=== PATIENT | male | born 1955 | race Caucasian/White ===

== ENCOUNTER 2023-01-14 08:37 | Outpatient (CLI) | payer MEDICARE, BC, SELFPAY | END 2023-01-14 08:38 | disposition home or self-care (01) | PROVIDERS: PCP Family Medicine; Visit Provider Nurse Practitioner Family | DX: Z00.00 Encounter for general adult medical examination without abnormal findings (principal); I10 Essential (primary) hypertension; E11.9 Type 2 diabetes mellitus without complications; E78.5 Hyperlipidemia, unspecified; Z12.5 Encounter for screening for malignant neoplasm of prostate | CPT/HCPCS: 80053; 80061; 84153 ==

== ENCOUNTER 2023-06-25 10:17 | Outpatient (CLI) | payer MEDICARE, BC, SELFPAY | END 2023-06-25 10:18 | disposition home or self-care (01) | LOC: NFLDREF 06-30 11:29 | PROVIDERS: PCP Family Medicine; Referring Provider Family Medicine; Visit Provider Family Medicine | DX: E11.9 Type 2 diabetes mellitus without complications (principal); E13.9 Other specified diabetes mellitus without complications; G47.00 Insomnia, unspecified; F41.9 Anxiety disorder, unspecified | CPT/HCPCS: 83036 ==

== ENCOUNTER 2024-01-18 09:00 | Outpatient (CLI) | payer MEDICARE, BC, SELFPAY | END 2024-01-18 09:01 | disposition home or self-care (01) | PROVIDERS: PCP Family Medicine; Visit Provider Family Medicine | DX: E11.9 Type 2 diabetes mellitus without complications (principal); E78.2 Mixed hyperlipidemia; Z12.5 Encounter for screening for malignant neoplasm of prostate | CPT/HCPCS: 80048; 80061; G0103 ==

== ENCOUNTER 2024-08-23 08:43 | Outpatient (CLI) | payer MEDICARE, BC, SELFPAY | END 2024-08-23 08:44 | disposition home or self-care (01) | PROVIDERS: PCP Family Medicine; Visit Provider Family Medicine | DX: E13.9 Other specified diabetes mellitus without complications (principal); I10 Essential (primary) hypertension; E78.5 Hyperlipidemia, unspecified; Z13.29 Encounter for screening for other suspected endocrine disorder; Z13.21 Encounter for screening for nutritional disorder | CPT/HCPCS: 82607; 84443 ==

== ENCOUNTER 2025-02-06 08:54 | Outpatient (CLI) | payer MEDICARE, BC, SELFPAY | END 2025-02-06 08:55 | disposition home or self-care (01) | PROVIDERS: PCP Family Medicine; Visit Provider Family Medicine | DX: E78.2 Mixed hyperlipidemia (principal); E13.65 Other specified diabetes mellitus with hyperglycemia; Z79.4 Long term (current) use of insulin | CPT/HCPCS: 80053; 80061 ==

== ENCOUNTER 2025-02-14 07:42 | Outpatient (CLI) | payer MEDICARE, BC, SELFPAY ==
[2025-02-14] MEDS: PERFLUTREN LIPID MICROSPHERES 2 ML VIAL IVP (08:35)
== END 2025-02-14 07:43 | disposition home or self-care (01) ==
LOC: RAD 07:47
PROVIDERS: PCP Family Medicine; Visit Provider Family Medicine
DX: R06.09 Other forms of dyspnea (principal); I07.1 Rheumatic tricuspid insufficiency
CPT/HCPCS: 93306; Q9957

== ENCOUNTER 2025-02-20 07:46 | Outpatient (CLI) | payer MEDICARE, BC, SELFPAY ==
[2025-02-20 10:50] VITALS: BP 147/79; PULSE 92
[2025-02-20] MEDS: SODIUM CHLORIDE 0.9 % (FLUSH) 10 ML SYRINGE IVF (10:54)
[2025-02-20] MEDS: REGADENOSON 0.4 MG/5 ML SYRINGE IVP (10:54)
--- NOTE | 2025-02-20 11:29 | W.PM.STED ---
Stress Test Note Date Date Seen: 02/20/25 Date of test: 02/20/25 Providers Primary care provider: Leoncio Oviedo Stress test physician: Mahogany Barton Stress Test Note Stress test ordered: Lexiscan Indication for test: Dyspnea Stress test medicine: Lexiscan Results discussion: Resting EKG: Sinus rhythm, 79 beats per minute. Nonspecific T-wave changes. Resting blood pressure: 143/82 Stress test: Patient is consented on ordered stress test which is Lexiscan. He did perform a walking Lexiscan per protocol. With the infusion of the regadenoson, patient did have a sense of chest pressure but not pain, mild shortness of breath which resolved by the into the stress test. There were no arrhythmias noted. He had significant artifact during the walking phase but recovery showed ongoing nonspecific ST and T-wave changes but not diagnostic of ischemia. Patient had no symptoms at termination of the EKG monitoring. He will have his post-stress images obtained. No concerning blood pressure changes during the stress test. Impression: Subjectively mild symptom changes with infusion, nonspecific EKG changes. Follow up suggested: Patient is discharged from the EKG portion in stable condition. Await nuclear medicine images to couple this test for a full formal diagnostic.
== END 2025-02-20 10:55 | disposition home or self-care (01) ==
LOC: STRESS 07:48
PROVIDERS: PCP Family Medicine; Visit Provider Family Medicine
DX: R06.09 Other forms of dyspnea (principal); I10 Essential (primary) hypertension; E78.00 Pure hypercholesterolemia, unspecified; E11.9 Type 2 diabetes mellitus without complications
CPT/HCPCS: 78452; 93016; 93017; A9500; J2785

== ENCOUNTER 2025-05-02 20:35 | Outpatient (CLI) | payer MEDICARE, BC, SELFPAY | END 2025-05-02 20:36 | disposition home or self-care (01) | LOC: AMB 05-09 15:03 | PROVIDERS: PCP Family Medicine; Visit Provider Family Medicine | DX: R42 Dizziness and giddiness (principal) | CPT/HCPCS: A0425; A0427 ==

== ENCOUNTER 2025-05-02 21:05 | Emergency (ER) | payer MEDICARE, BC, SELFPAY ==
--- NOTE | 2025-05-02 21:11 | ED.GENADULT ---
HPI - General Adult General Date Seen: 05/02/25 Chief complaint: Shortness of Breath/Dyspnea Stated complaint: dizzy Time Seen by Provider: 05/02/25 21:11 History of Present Illness HPI narrative: 69 yo M brought to the ER today by EMS for dizziness. He has a history of diabetes on insulin, hypertension, hyperlipidemia, gout, anxiety, depression, insomnia, BPH, elevated BMI, hearing loss. History is obtained partly from the patient and partly from his son. He notes that he has had trouble with his breathing for the past for 5 years, ever since he had COVID. It does not sound like he has a formal diagnosis for that. He has never been diagnosed with asthma or COPD but his doctors told him at 1 point that he was having reactive airways disease. He has no known history of coronary disease, CHF, or AFib. He did apparently have 3 recent stress test through his primary care provider. It sounds like they were normal and he did not need an angiogram were stents, per the patient's report. He does have some chronic shortness of breath that limits his activities. Of note his son notes that he has trouble walking even 10 yd, for instance when they go trap shooting. In that context, he is having more trouble today. He when out to mow the lawn today around noon. He was only able to mow the front of his long and that is stop due to shortness of breath, chest discomfort and generalized weakness. He has been working ammonia long throughout the afternoon but gets very short of breath and weak every time he goes to mow so it has taken him several hours to do a bit by bit. This evening, his girlfriend was talking to him and noted that it was shortened breath on the phone so she insisted that they call the ambulance to bring him in. He does have a mild cough. He did not know he had a fever but does have a fever at the time of triage here. He has had swelling in both of his legs for the past few days and in particular swelling with pain in his left ankle and calf. He has no recent immobilization. No history of DVT or PE. Related Data Home Medications ?Medication ?Instructions ?Recorded ?Confirmed turmeric 100 mg-aliyah 150 1 cap PO QDAY 06/25/23 02/06/25 mg-olive 50 mg-oreg 150 mg-capryl capsule vit C 250 mg-vit E 200 unit-zinc 2 cap PO DAILY 01/18/24 02/06/25 ox 12.5 ws-fxxrlm-esimlk-zeax capsule (ICaps AREDS2) Previous Rx's ?Medication ?Instructions ?Recorded blood-glucose,esol instructor,cont #1 ea 04/14/23 (Dexcom G7 Director Banking) blood-glucose meter (Accu-Chek #1 ea 09/06/23 Guide Glucose Meter) lancets (Accu-Chek Softclix #200 ea 09/06/23 Lancets) pen needle, diabetic 31 gauge x #200 ea 11/30/2302/16 (BD Ultra-Fine Short Pen Needle) blood sugar diagnostic (Accu-Chek #200 ea 03/22/24 Guide test strips) insulin glargine 100 unit/mL (3 50 unit (0.5 mL) subcut BID #60 mL 04/26/24 mL) subcutaneous pen (Lantus Solostar U-100 Insulin) blood-glucose sensor (Dexcom G7 #3 ea 12/25/24 Sensor device) amlodipine 10 mg tablet 10 mg PO QDAY #90 tabs 02/06/25 atenolol 50 mg tablet 50 mg PO QDAY #90 tabs 02/06/25 atorvastatin 80 mg tablet 80 mg PO QHS #90 tabs 02/06/25 doxepin 25 mg capsule 25 mg PO QPM #90 caps 02/06/25 omeprazole 20 mg capsule,delayed 20 mg PO QDAY #90 caps 02/06/25 release paroxetine HCl 40 mg tablet 40 mg PO QDAY #90 tabs 02/06/25 pioglitazone 15 mg tablet See Rx Instructions .Route 02/06/25 .COMPLEX #90 tabs sitagliptin phosphate 100 mg 100 mg PO QDAY #90 tabs 02/06/25 tablet (Januvia) albuterol sulfate 90 mcg/actuation 2 inh inhalation Q4H PRN shortness 05/03/25 aerosol inhaler of breath or wheezing #8.5 grams Allergies Allergy/AdvReac Type Severity Reaction Status Date / Time No Known Drug Allergies Allergy Verified 05/02/25 21:15 [facility] Medical History COVID-19 ?U07.1 - COVID-19 (ICD-10) Surgical History History of cataract extraction ?Z98.49 - Cataract extraction status, unspecified eye (ICD-10) Family History Other Colon cancer Social History (Updated 02/07/25 @ 09:08 by Radha Black ~ [facility]) What is your current living situation?: I presently have a place to live Problems where you live: no known problems In the past 12 months, utilities in danger of being shut off: no In past 12 months, lack of transportation kept you from medical appts, meetings, work, or getting things needed for daily living: no In the past 12 mos, have been you worried that your food would run out before you had money to buy more?: never true In the past 12 mos, the food you bought just didn't last and you didn't have money to buy more?: never true Smoking Status: Never smoker How often do you have a drink containing alcohol: monthly or less AUDIT-C Alcohol total score: 1 Non-prescribed substance use: denies use How often does anyone, including family, friends and others, physically hurt you: sometimes How often does anyone, including family, friends and others, insult or talk down to you: sometimes How often does anyone, including family, friends and others, threaten you with harm: never How often does anyone, including family, friends and others, scream or curse at you: rarely Health Related Social Needs: Other personal risk factors, not elsewhere classified (Z91.89) Exam Narrative: Exam Narrative: Constitutional: Appears well-developed and well-nourished. Alert. Conversant. Conversant, mildly tachypneic but otherwise not in respiratory distress. His skin is warm and sweaty. Not pale or diaphoretic. HENT: Head: Atraumatic. Nose: Nose normal. Mouth/Throat: Oral mucosa is clear and moist. no trismus. Pharynx normal. Tonsils symmetric. No tonsillar enlargement, erythema, or exudate. Eyes: Conjunctivae normal. EOM normal. Pupils equal, round, and reactive to light. No scleral icterus. Neck: Normal range of motion. Neck supple. No tracheal deviation present. No JVD Cardiovascular: Normal rate, regular rhythm. No gallop. No friction rub. No murmur heard. Symmetric radial and PT artery pulses Pulmonary/Chest: Effort normal. No stridor. No respiratory distress. No wheezes. No rales. No rhonchi . No tenderness. Abdominal: Soft. No distension. No mass. No tenderness. No rebound. No guarding. Musculoskeletal: RUE: Normal range of motion. No tenderness. No deformity LUE: Normal range of motion. No tenderness. No deformity RLE: Normal range of motion. 1+ edema. No tenderness. No deformity LLE: Normal range of motion. 2+ edema with mild calf tenderness. No palpable cords. No redness. No bruising. No deformity Neurological: Alert and oriented to person, place, and time. Normal strength. CN II-VII intact. No sensory deficit. GCS eye subscore is 4. GCS verbal subscore is 5. GCS motor subscore is 6. Normal coordination Skin: Skin is warm and dry. No rash noted. No pallor. Normal capillary refill. Psychiatric: Normal mood. Normal affect. Polite. Const: Vital Signs, click to edit/add: Vital Signs - 24 hr 05/02/25 21:12 05/02/25 23:03 Temperature 101.7 F H 98.9 F Pulse Rate [Left P ulse Oximeter] 89 Respiratory Rate 24 19 Blood Pressure [Ri ght Upper Arm] 153/81 H 140/91 H Pulse Oximetry 97 94 Oxygen Delivery Me thod Room Air Room Air Course Vital Signs Vital signs: Initial Vital Signs Temperature 101.7 F H 05/02/25 21:12 Temperature Source Temporal Artery Scan 05/02/25 21:12 Respiratory Rate 24 05/02/25 21:12 Respiratory Depth Normal 05/02/25 21:12 Blood Pressure 153/81 H 05/02/25 21:12 Blood Pressure Mean 105 05/02/25 21:12 Blood Pressure Position Supine 05/02/25 21:12 Pulse Oximetry 97 05/02/25 21:12 Oxygen Delivery Method Room Air 05/02/25 21:12 Vital Signs Temperature 101.7 F H 05/02/25 21:12 Respiratory Rate 24 05/02/25 21:12 Blood Pressure 153/81 H 05/02/25 21:12 Pulse Oximetry 97 05/02/25 21:12 Oxygen Delivery Method Room Air 05/02/25 21:12 Temperature 98.9 F 05/02/25 23:03 Pulse Rate 89 05/02/25 23:03 Respiratory Rate 19 05/02/25 23:03 Blood Pressure 140/91 H 05/02/25 23:03 Pulse Oximetry 94 05/02/25 23:03 Oxygen Delivery Method Room Air 05/02/25 23:03 Medications Administered Medications: Discontinued Medications Generic Name Dose Route Start Last Admin Trade Name Efrain PRN Reason Stop Dose Admin Albuterol/Ipratropium 1 neb 05/02/25 21:26 05/02/25 21:37 Iprat-Albut 0.5-2.5 Mg/3 Ml Neb IH 05/02/25 21:27 1 neb ONCE ONE Administration Medical Decision Making MDM Narrative Medical decision making narrative: Pleasant 69-year-old gentleman presenting to the ER today with exertional shortness of breath and chest discomfort throughout the day today associated with mowing his lawn also has a fever of 101.7. Although he was feeling short of breath, oxygen level is normal here in the ER. He does have some chronic shortness of breath sending back several years apparently related to previous COVID infection and also has a history of reactive airways disease. However he is not wheezing on my exam here in the ER. We did try an empiric DuoNeb, with fairly significant improvement. Repeat lung exam reveals clear. I will send the patient home with albuterol inhaler is also a 5 day course of prednisone. Recommend close outpatient follow-up with his PCP. With his fever concern is for infection such as pneumonia, influenza, COVID. COVID/influenza a and B/RSV PCR is negative. Chest x-ray is clear by my read by my read and per Radiology is normal As well. White blood cell count is 12. Hemodynamics are stable other than fever. Lactic is borderline abnormal at 2.0. However no other evidence for sepsis. Consider cardiac causes for his exertional dyspnea. EKG shows no definite ischemia but is nonspecific. Initial point of care troponin is normal. With his peripheral edema consider CHF. Chest x-ray is negative for pulmonary edema. Consider possible venous thromboembolic disease as a cause for shortness of breath. Left lower extremity ultrasound where he has calf swelling and tenderness is negative for DVT. Screening D-dimer ultimately came back negative. Therefore this point we do not think he needs chest CT. Hemoglobin is normal at 14.1. Lab Data Labs: Lab Results 05/02/25 05/02/25 05/02/25 Range/Units 21:10 21:27 21:50 WBC 12.31 H (4.50-11.00) K/uL RBC 4.64 (4.30-5.90) m/uL Hgb 14.1 (13.5-17.5) gm/dL Hct 43.1 (37.0-53.0) % MCV 93 (80-100) fL MCH 30 (26-34) pg MCHC 33 (32-36) gm/dL RDW Coeff of Michael 13.1 (11.5-15.5) % Plt Count 188 (140-440) K/uL Neut % (Auto) 88.5 H (42.0-72.0) % Lymph % (Auto) 2.4 L (20-44) % [place] % (Auto) 8.1 (0.0-11.0) % Eos % (Auto) 0.6 (0.0-7.0) % Baso % (Auto) 0.2 (0.0-3.0) % Neut # (Auto) 10.90 H (1.7-7.0) K/uL Lymph # (Auto) 0.30 L (0.90-2.90) K/uL [place] # (Auto) 1.00 H (0.00-0.90) K/UL Eos # (Auto) 0.10 (0.00-0.50) K/uL Baso # (Auto) 0.00 (0.00-0.30) K/uL Abs Immat Gran (auto) 0.00 (0.00-0.30) K/uL Imm/Tot Granulo (auto) 0.2 % D-Dimer Quant (PE/DVT) < 0.27 (0.00-0.50) ug/ml Sodium 139 (135-149) mmol/L Potassium 3.8 (3.6-5.1) mmol/L Chloride 104 (96-114) mmol/L Carbon Dioxide 24 (20-32) mmol/L Anion Gap 11 (7-15) mEq/L BUN 22 (7-30) mg/dL Creatinine 0.8 (0.5-1.5) mg/dL Estimated Creat Clear 74.37 Estimated GFR 95 ml/min Glucose 122 H (60-115) mg/dL Lactate 2.0 H (0.5-1.9) mmol/L Calcium 9.5 (8.4-10.6) mg/dL NT-Pro-B Natriuret Pep 103 (See Note) pg/mL SARS-CoV-2 (PCR) Negative SARS-CoV-2 (Negative) Influenza Type A (PCR) Negative PCR FLU A (Negative) Influenza Type B (PCR) Negative PCR FLU B (Negative) RSV (PCR) Negative PCR RSV (Negative) POC Troponin I 0.02 (0.01-0.04) ng/ml 05/02/25 Range/Units 23:42 WBC (4.50-11.00) K/uL RBC (4.30-5.90) m/uL Hgb (13.5-17.5) gm/dL Hct (37.0-53.0) % MCV (80-100) fL MCH (26-34) pg MCHC (32-36) gm/dL RDW Coeff of Michael (11.5-15.5) % Plt Count (140-440) K/uL Neut % (Auto) (42.0-72.0) % Lymph % (Auto) (20-44) % [place] % (Auto) (0.0-11.0) % Eos % (Auto) (0.0-7.0) % Baso % (Auto) (0.0-3.0) % Neut # (Auto) (1.7-7.0) K/uL Lymph # (Auto) (0.90-2.90) K/uL [place] # (Auto) (0.00-0.90) K/UL Eos # (Auto) (0.00-0.50) K/uL Baso # (Auto) (0.00-0.30) K/uL Abs Immat Gran (auto) (0.00-0.30) K/uL Imm/Tot Granulo (auto) % D-Dimer Quant (PE/DVT) (0.00-0.50) ug/ml Sodium (135-149) mmol/L Potassium (3.6-5.1) mmol/L Chloride (96-114) mmol/L Carbon Dioxide (20-32) mmol/L Anion Gap (7-15) mEq/L BUN (7-30) mg/dL Creatinine (0.5-1.5) mg/dL Estimated Creat Clear Estimated GFR ml/min Glucose (60-115) mg/dL Lactate (0.5-1.9) mmol/L Calcium (8.4-10.6) mg/dL NT-Pro-B Natriuret Pep (See Note) pg/mL SARS-CoV-2 (PCR) (Negative) Influenza Type A (PCR) (Negative) Influenza Type B (PCR) (Negative) RSV (PCR) (Negative) POC Troponin I 0.01 (0.01-0.04) ng/ml Imaging Data Chest x-ray: Attestation: I have reviewed the pertinent imaging results. My impression: Normal Radiologist's impression: IMPRESSION: No acute cardiopulmonary findings. Ultrasound venous, left lower extremity: Attestation: I have reviewed the pertinent imaging results. Radiologist's impression: Impression: No significant sonographic abnormality appreciated. Discharge Plan Discharge Clinical Impression: Acute bronchospasm, Fever, Shortness of breath Patient Disposition: Home, Self-Care Condition: Stable Instructions: Fever in Adults (ED), Bronchospasm (ED), Shortness of Breath (ED) Additional Instructions: As we discussed, so for the EKG and blood tests look good for your heart. Her chest x-ray does not show any sign of pneumonia. Suspect your shortness of breath is being caused by wheezing. To treat your wheezing you can use her inhaler 2 puffs every 4 hours as needed. Also start on the prednisone tonight and take it once daily to help calm down the inflammation in your lungs. If you have worsening trouble breathing, chest discomfort, or any other concerns, please come back to the ER right away to be rechecked. Even if you get better, please recheck with your primary care provider within the next 3-5 days. Ask your regular doctor if they think a referral to pulmonology might help to workup for your long-term lung problems. Prescriptions: New albuterol sulfate 90 mcg/actuation HFA aerosol inhaler 2 inh inhalation Q4H PRN (Reason: shortness of breath or wheezing) Qty: 8.5 0RF No Action fyxshzgp-mzbz-fyjem-oreg-capry 100 mg-150 mg- 50 mg-150 mg capsule 1 cap PO QDAY ICaps AREDS2 250 mg-200 unit -12.5 mg-1 mg capsule 2 cap PO DAILY atorvastatin 80 mg tablet 80 mg PO QHS Qty: 90 3RF amlodipine 10 mg tablet 10 mg PO QDAY Qty: 90 3RF atenolol 50 mg tablet 50 mg PO QDAY Qty: 90 3RF omeprazole 20 mg capsule,delayed release(DR/EC) 20 mg PO QDAY Qty: 90 3RF paroxetine HCl 40 mg tablet 40 mg PO QDAY Qty: 90 3RF pioglitazone 15 mg tablet See Rx Instructions .ROUTE .COMPLEX Qty: 90 3RF Dose Instruction: TAKE 1 TABLET BY MOUTH EVERY DAY Rx Instructions: TAKE 1 TABLET BY MOUTH EVERY DAY Januvia 100 mg tablet 100 mg PO QDAY Qty: 90 3RF doxepin 25 mg capsule 25 mg PO QPM Qty: 90 3RF (DME) Dexcom G7 Director Banking Misc See Rx Instructions .Route Qty: 1 0RF Rx Instructions: As directed (DME) blood-glucose meter [Accu-Chek Guide Glucose Meter] Misc See Rx Instructions .Route Qty: 1 0RF Rx Instructions: As directed (DME) lancets [Accu-Chek Softclix Lancets] Misc See Rx Instructions .Route Qty: 200 0RF Rx Instructions: Use to test blood sugar BID (DME) pen needle, diabetic [BD Ultra-Fine Short Pen Needle] 31 gauge x 5/16 needle See Rx Instructions .Route Qty: 200 0RF Rx Instructions: USE BID (DME) Accu-Chek Guide test strips Strip See Rx Instructions .Route Qty: 200 3RF Rx Instructions: Use to test blood sugar BID insulin glargine [Lantus Solostar U-100 Insulin] 100 unit/mL (3 mL) insulin pen 50 unit subcut BID Qty: 60 8RF (DME) Dexcom G7 Sensor Device See Rx Instructions .Route Qty: 3 3RF Rx Instructions: As directed Follow Up/Referrals: Leoncio Oviedo MD [Primary Care Provider, Family Practice] Stand Alone Forms: My[facility] Info Instructions
[2025-05-02 21:12] VITALS: BP 153/81; RESP 24; TEMP 38.7; O2SAT 97; BMI 33.2
--- NOTE | 2025-05-02 21:26 | CRLHL7_ITS ---
For Patients: As a result of the Century Cures Act, medical imaging exams and procedure reports are released immediately into your electronic medical record. You may view this report before your referring provider. If you have questions, please contact your health care provider. INDICATION: Fever, short of breath, chest pain, peripheral edema. TECHNIQUE: Chest 2 view. COMPARISON: None. FINDINGS: Cardiovascular: Heart size and pulmonary vasculature are within normal limits. Lungs and pleural spaces: The lungs are clear. No sign of pleural effusion. No pneumothorax identified. Bones and soft tissues: Degenerative changes of the spine. Small radiopaque density projected over the left glenoid. IMPRESSION: No acute cardiopulmonary findings. Dictated by Jacqui Barker MD @ 05/02/2025 10:59:42 PM (Electronically Signed)
[2025-05-02] MEDS: IPRAT-ALBUT 0.5-2.5 MG/3 ML NEB 1 NEB IH (21:37)
[2025-05-02 22:06] LABS: PCR FLU A Negative PCR FLU A (Negative); PCR FLU B Negative PCR FLU B (Negative); PCR RSV Negative PCR RSV (Negative); SARS PCR* Negative SARS-CoV-2 (Negative)
[2025-05-02 22:10] LABS: Lactate* 2.0 mmol/L (0.5-1.9)
[2025-05-02 22:11] LABS: Hematocrit 43.1 % (37.0-53.0); Hemoglobin* 14.1 gm/dL (13.5-17.5); Immature Granulocytes Pct Auto 0.2 %; Lymphocytes Absolute Auto 0.30 K/uL (0.90-2.90); Mean Corpuscular HGB Conc 33 gm/dL (32-36); Mean Corpuscular Hemoglobin 30 pg (26-34); Mean Corpuscular Volume 93 fL (80-100); RDW Coefficient of Variation % 13.1 % (11.5-15.5); Red Blood Count 4.64 m/uL (4.30-5.90); White Blood Count* 12.31 K/uL (4.50-11.00)
[2025-05-02 22:15] LABS: Immature Granulocytes Abs Auto 0.00 K/uL (0.00-0.30); Slide Review Reflex No
[2025-05-02 22:26] LABS: Chloride* 104 mmol/L (96-114); Potassium* 3.8 mmol/L (3.6-5.1); Sodium* 139 mmol/L (135-149)
--- NOTE | 2025-05-02 22:27 | CRLHL7_ITS ---
For Patients: As a result of the Century Cures Act, medical imaging exams and procedure reports are released immediately into your electronic medical record. You may view this report before your referring provider. If you have questions, please contact your health care provider. Indication: Left calf pain, swelling Technique: DVT ultrasound of the left lower extremity. Grayscale and color Doppler imaging utilized. Duplex/spectral analysis used. Compression and augmentation as clinically warranted. Comparison: None Findings: All vessels are grossly compressible without evidence of filling defect to suggest DVT. No superficial thrombosis appreciated. Soft tissues are unremarkable. Impression: No significant sonographic abnormality appreciated. Dictated by Darryn Post MD @ 05/02/2025 11:41:44 PM (Electronically Signed)
[2025-05-02 22:29] LABS: Blood Urea Nitrogen* 22 mg/dL (7-30); Creatinine* 0.8 mg/dL (0.5-1.5); Est. Creatinine Clearance* 74.37; Estimated Glomerular Filt Rate 95 ml/min
[2025-05-02 22:30] LABS: Anion Gap 11 mEq/L (7-15); Calcium* 9.5 mg/dL (8.4-10.6); Carbon Dioxide* 24 mmol/L (20-32); Glucose* 122 mg/dL (60-115)
[2025-05-02 22:30] LABS: Troponin, Point-of-Care* 0.02 ng/ml (0.01-0.04)
[2025-05-02 22:34] LABS: D Dimer Quantitative* < 0.27 ug/ml (0.00-0.50)
[2025-05-02 22:41] LABS: NT Pro B Type NatriureticPept* 103 pg/mL (See Note)
[2025-05-02 23:03] VITALS: BP 140/91; PULSE 89; RESP 19; TEMP 37.2; O2SAT 94
[2025-05-03] LABS: Troponin, Point-of-Care* 0.01 ng/ml (0.01-0.04)
== END 2025-05-03 00:22 | disposition home or self-care (01) ==
PROVIDERS: Emergency Provider Emergency Medicine; PCP Family Medicine
DX: R06.02 Shortness of breath (principal); E11.9 Type 2 diabetes mellitus without complications; I10 Essential (primary) hypertension; E78.5 Hyperlipidemia, unspecified; M10.9 Gout, unspecified; F32.A Depression, unspecified; F41.8 Other specified anxiety disorders; G47.00 Insomnia, unspecified; Z79.4 Long term (current) use of insulin
CPT/HCPCS: 36415; 71046; 80048; 81001; 83605; 83880; 84484; 85025; 85379; 87040; 87631; 93005; 93971; 94640; 99283; 99284; 99285